=== PATIENT | male | born 1950 | race Caucasian/White ===

== ENCOUNTER 2017-06-10 03:28 | Inpatient (IN) | payer OTHER ==
[~2017-06-10] VITALS: Ht 172.7 cm; Wt 72.6 kg
[2017-06-10 04:07] LABS: Basophils # (auto) 0 uL; Basophils % (auto) 0.6 % (0.0-2.0); Eosinophils # (auto) 0.1 uL; Eosinophils % (auto) 2.4 % (0.0-7.0); Hematocrit 43.7 % (41.0-53.0); Lymphocytes # (auto) 1.6 uL; Mean Corpuscular Hemoglobin 31.1 pg (28.0-32.0); Mean Corpuscular Hgb Conc. 34.3 g/dL (32.0-36.0); Mean Corpuscular Volume 90.6 fL (80.0-100.0); Monocytes # (auto) 0.4 uL; Monocytes % (auto) 5.8 % (0.0-12.0); Neutrophils # (auto) 3.9 uL; Neutrophils % (auto) 64.2 % (37.0-80.0); Platelet Count (auto) 220 10^3/uL (140-450); Red Blood Cells 4.82 10^6/uL (4.5-5.90); Red Cell Distribution Width 13.4 % (11.8-14.3)
[2017-06-10 04:26] LABS: Alanine Aminotransferase 23 U/L (16-61); Albumin 3.9 g/dL (3.4-5.0); Anion Gap 8 (5-15); Aspartate Aminotransferase 20 U/L (15-37); BUN/Creatinine Ratio 12.8; Blood Urea Nitrogen 12 mg/dL (7-18); Calcium 9.4 mg/dL (8.5-10.1); Carbon Dioxide 24 mmol/L (21-32); Chloride 108 mmol/L (98-107); GFR African American 104 mL/min; GFR Non-African American 86 mL/min; Glucose 104 mg/dL (74-106); Potassium 3.6 mmol/L (3.5-5.1); Sodium 140 mmol/L (136-145)
[2017-06-10 04:40] LABS: INR 0.96 (0.9-1.15); Partial Thromboplastin Time 28.7 sec (22.64-33.71); Prothrombin Time 10.5 sec (9.37-12.3)
[2017-06-10 04:41] LABS: Alkaline Phosphatase 58 U/L (45-117); Bilirubin, Total 1.1 mg/dL (0.2-1.0); Total Protein 7.7 g/dL (6.4-8.2)
[2017-06-10] MEDS ORDERED: ASPirin 325 MG TAB PO ONE (07:30)
[2017-06-10] MEDS ORDERED: NITROGLYCERIN 0.4 MG SL TAB SL ONE (07:30)
[2017-06-10 08:02] LABS: Urine Bacteria NONE SEEN /hpf (None Seen); Urine Blood Negative /uL (Negative); Urine Mucus FEW (None Seen); Urine Specific Gravity 1.011 (1.001-1.035); Urine WBC 2 /hpf (0 - 3)
[2017-06-10] MEDS ORDERED: DOCUSATE SOD 100 MG CAP PO PRN (09:45)
[2017-06-10] MEDS ORDERED: ACETAMINOPHEN 325 MG TAB PO PRN (09:45)
[2017-06-10] MEDS ORDERED: HYDROcodone-ACET 5/325MG TAB PO PRN (09:45)
[2017-06-10] MEDS ORDERED: NITROGLYCERIN 0.4 MG SL TAB SL PRN (09:45)
[2017-06-10] MEDS ORDERED: TEMAZEPAM 15 MG CAP PO PRN (09:45)
[2017-06-10] MEDS ORDERED: ONDANSETRON HCL 4 MG/2 ML VIAL IV PRN (09:45)
[2017-06-10] MEDS ORDERED: MORPHINE SULFATE 4 MG/ML SYR/VIAL IV PRN ×2 (09:45)
[2017-06-10] MEDS ORDERED: PANTOPRAZOLE 40 MG TAB PO SCH (10:00)
[2017-06-10] MEDS ORDERED: FAMOTIDINE 20 MG TAB PO SCH (10:00)
[2017-06-10] MEDS ORDERED: buPROPion HCL 75 MG TAB PO ONE (10:00)
[2017-06-10] MEDS: MULTIPLE VITAMIN TAB PO SCH (10:32)
[2017-06-10] MEDS: SODIUM CHLOR 0.9% PF (SALINE LOCK) 10ML VIAL IV SCH ×2 (12:04→20:14)
[2017-06-10 17:39] VITALS: BP 88/59
[2017-06-10 18:00] VITALS: BP 136/82
[2017-06-10] MEDS: buPROPion HCL 75 MG TAB PO SCH (19:00)
[2017-06-10 22:00] VITALS: BP_SYST 149; BP_SYST 93; BP_DIAS 60; BP_DIAS 85
[2017-06-10] MEDS: PANTOPRAZOLE 40 MG TAB PO SCH (22:00)
[2017-06-11 05:00] VITALS: BP 104/62
[2017-06-11] MEDS: SODIUM CHLOR 0.9% PF (SALINE LOCK) 10ML VIAL IV SCH ×3 (05:36→21:40)
[2017-06-11] MEDS: buPROPion HCL 75 MG TAB PO SCH ×2 (06:15→18:32)
[2017-06-11 07:25] LABS: Basophils # (auto) 0 uL; Basophils % (auto) 0.8 % (0.0-2.0); Eosinophils # (auto) 0.2 uL; Eosinophils % (auto) 3.6 % (0.0-7.0); Hematocrit 40.8 % (41.0-53.0); Lymphocytes # (auto) 1.4 uL; Lymphocytes % (auto) 24.9 % (10.0-50.0); Mean Corpuscular Hgb Conc. 34.3 g/dL (32.0-36.0); Mean Corpuscular Volume 90.4 fL (80.0-100.0); Monocytes # (auto) 0.3 uL; Monocytes % (auto) 6.1 % (0.0-12.0); Neutrophils # (auto) 3.6 uL; Neutrophils % (auto) 64.6 % (37.0-80.0); Nucleated Red Blood Cells % 0.1 %; Platelet Count (auto) 192 10^3/uL (140-450); Red Blood Cells 4.51 10^6/uL (4.5-5.90); Red Cell Distribution Width 13.3 % (11.8-14.3); White Blood Cell 5.6 10^3/uL (4.4-10.8)
[2017-06-11 07:29] LABS: Albumin 3.3 g/dL (3.4-5.0); BUN/Creatinine Ratio 16.7; Bilirubin, Total 1.7 mg/dL (0.2-1.0); Calcium 8.9 mg/dL (8.5-10.1); Potassium 3.9 mmol/L (3.5-5.1); Total Protein 6.7 g/dL (6.4-8.2)
[2017-06-11 08:00] VITALS: BP 111/63
[2017-06-11] MEDS: MULTIPLE VITAMIN TAB PO SCH (11:32)
[2017-06-11] MEDS: PANTOPRAZOLE 40 MG TAB PO SCH ×2 (11:33→21:40)
[2017-06-11 12:06] VITALS: BP 100/56
[2017-06-11 14:34] LABS: Cholesterol 198 mg/dL (< 200); HDL Cholesterol 46 mg/dL (40-59); LDL Cholesterol 130 mg/dL (< 100); Triglycerides 156 mg/dL (< 150)
[2017-06-11 16:00] VITALS: BP 93/60
[2017-06-11 20:00] VITALS: BP 119/72
[2017-06-11 22:00] VITALS: BP 114/59
[2017-06-12 05:00] VITALS: BP 106/52
[2017-06-12] MEDS: buPROPion HCL 75 MG TAB PO SCH (06:27)
[2017-06-12] MEDS: SODIUM CHLOR 0.9% PF (SALINE LOCK) 10ML VIAL IV SCH (06:43)
[2017-06-12 08:00] VITALS: BP 90/60
[2017-06-12] MEDS ORDERED: SODIUM CHLORIDE LOCK 10 ML ONE (08:16)
[2017-06-12] MEDS ORDERED: FLUMAZENIL 0.1 MG/ML INJ 10ML MDV IV ONE (08:16)
[2017-06-12] MEDS ORDERED: MIDAZOLAM HCL 5 MG/ML-1ML VIAL ONE (08:16)
[2017-06-12] MEDS ORDERED: diphenhdrAMINE HCL 50 MG/1 ML VL ONE (08:16)
[2017-06-12] MEDS ORDERED: LIDOCAINE VISCOUS 2% 15ML UD ONE (08:16)
[2017-06-12] MEDS ORDERED: NALOXONE HCL 0.4 MG/ML VIAL ONE (08:16)
[2017-06-12] MEDS ORDERED: fentaNYL CITRATE 100 MCG/2 ML VL ONE (08:17)
[2017-06-12] MEDS: PANTOPRAZOLE 40 MG TAB PO SCH (10:16)
[2017-06-12] MEDS: MULTIPLE VITAMIN TAB PO SCH (10:16)
[2017-06-12 12:00] VITALS: BP 104/63
== END 2017-06-12 17:34 | disposition home or self-care (01) | DRG 392 ==
LOC: EDBD 03:28 → ER 03:32 → TELE 03:33 → TELE-CENTR 20:48
PROVIDERS: ADMIT Internal Medicine; ATTEND Family Medicine
PROC: 0DB68ZX Excision of Stomach, Via Natural or Artificial Opening Endoscopic, Diagnostic (ICD-10-PCS; principal; 2017-06-12 09:03)
DX: K29.00 Acute gastritis without bleeding (principal); I49.5 Sick sinus syndrome; J98.11 Atelectasis; R07.89 Other chest pain; K57.10 Diverticulosis of small intestine without perforation or abscess without bleeding; N18.2 Chronic kidney disease, stage 2 (mild); F32.9 Major depressive disorder, single episode, unspecified; I70.90 Unspecified atherosclerosis
CPT/HCPCS: 36415; 43239; 71045; 71250; 74176; 80053; 80061; 81001; 83880; 84484; 85025; 85610; 85730; 93005; 93306; J2250

== ENCOUNTER 2023-02-24 20:17 | Emergency (ER) | payer MEDICARE ==
[~2023-02-24] VITALS: Ht 172.7 cm; Wt 75.0 kg
[2023-02-24 20:17] VITALS: BP 128/95; PULSE 125; RESP 20; O2SAT 95
[2023-02-24] MEDS ORDERED: NIRM1TAB PO (22:42)
== END 2023-02-25 01:30 | disposition home or self-care (01) ==
LOC: ER 20:17
DX: U07.1 COVID-19 (principal); F32.9 Major depressive disorder, single episode, unspecified
CPT/HCPCS: 71045